=== PATIENT | male | born 1965 | race Caucasian/White ===

== ENCOUNTER 2019-10-14 15:32 | Inpatient (IN) | payer MEDICAID ==
[~2019-10-14] VITALS: Ht 180.3 cm; Wt 105.7 kg
[~2019-10-14 15:32] MED LIST: BUSP15TA PO; CITA20TA9 PO; OMEP20TA62 PO; SIMV20TA PO; TRAZ-137 PO
[2019-10-14] MEDS ORDERED: ASPIRIN 325 MG TABLET PO STA (15:44)
[2019-10-14] MEDS ORDERED: BIVALIRUDIN 250 MG ONE ×2 (15:50→16:09)
[2019-10-14] MEDS ORDERED: TICAGRELOR 90 MG TABLET ONE (15:50)
[2019-10-14] MEDS ORDERED: FENTANYL PF 100 MCG/2ML ONE ×3 (15:50→16:58)
[2019-10-14] MEDS ORDERED: VERAPAMIL 2.5 MG/ML, 2ML ONE (15:50)
[2019-10-14] MEDS ORDERED: HEPARIN 1,000 UNITS/ML, 10ML ONE (15:50)
[2019-10-14] MEDS ORDERED: MIDAZOLAM 1 MG/ML, 5ML ONE (15:50)
--- NOTE | 2019-10-14 15:50 | NUR ---
code cardiac called at 1543 called card at 1543 card called back at 1542
[2019-10-14] MEDS ORDERED: LIDOCAINE 2%, 20ML ONE (15:51)
[2019-10-14] MEDS ORDERED: MORPHINE SULFATE 4 MG/ML, 1ML ONE (15:52)
[2019-10-14 15:59] LABS: BASOPHILS # (AUTO) 0.08 x10^3/uL (0-0.1); BASOPHILS % (AUTO) 1 % (0-1); EOSINOPHILS # (AUTO) 0.14 x10^3/uL (0-0.4); EOSINOPHILS % (AUTO) 1 % (1-7); LYMPHOCYTES # (AUTO) 3.34 x10^3/uL (1-3.4); LYMPHOCYTES % (AUTO) 28 % (22-44); MD NO; MEAN CORPUSCULAR HEMOGLOBIN 31.2 pg (27.5-34.5); MEAN CORPUSCULAR HGB CONC 33.1 g/dL (33.2-36.2); MEAN CORPUSCULAR VOLUME 94.4 fL (81-97); MEAN PLATELET VOLUME 9.8 fL (7.4-10.4); MONOCYTES # (AUTO) 0.81 x10^3/uL (0.2-0.8); MONOCYTES % (AUTO) 7 % (2-9); NEUTROPHILS # (AUTO) 7.43 x10^3/uL (1.8-6.8); NEUTROPHILS % (AUTO) 63 % (42-75); PLATELET COUNT 183 x10^3/uL (130-400); RED BLOOD COUNT 4.62 x10^6/uL (4.38-5.82); RED CELL DISTRIBUTION WIDTH 13.7 % (9.4-14.8)
[2019-10-14] MEDS ORDERED: PLEASE ENTER HEIGHT AND WEIGHT MC SCH (16:00)
[2019-10-14 16:09] LABS: INTERNATIONAL NORMALIZED RATIO 0.95 (0.93-1.1)
[2019-10-14 16:12] LABS: TROPONIN I < 0.015 ng/mL (0.000-0.045)
--- NOTE | 2019-10-14 16:13 | NUR ---
Pt here for substernal chest pain radiaitng to left chest. Pt had st eval on monitor, pt had ekg completed. [facility] cardiac called. ekg verified by md russell. Dr. Dinh to bedside and requesting pt go up immediately for intervention no need for creatine to come back. CCU sup at bedside aware of this and cath okayed for pt to go up.
--- NOTE | 2019-10-14 16:16 | NUR ---
Pt taked to research laboratory technician without complications.
--- NOTE | 2019-10-14 16:17 | NUR ---
Report to tim medical lab scientist rn.
[2019-10-14] MEDS ORDERED: NITROGLYCERIN 0.4 MG/SPRAY SL PRN (16:30)
[2019-10-14] MEDS ORDERED: morphine SULFATE 10 MG/ML, 1ML IVPush ONE (16:30)
[2019-10-14] MEDS ORDERED: ASPIRIN 325 MG TABLET PO ONE (16:30)
[2019-10-14] MEDS ORDERED: NITROGLYCERIN 0.4 MG BOTTLE (25 TABS) SL PRN (16:30)
[2019-10-14] MEDS ORDERED: ACETAMINOPHEN 325 MG TABLET PO PRN (16:30)
[2019-10-14] MEDS ORDERED: ADENOSINE 6 MG/2 ML ONE (16:38)
[2019-10-14 17:29] VITALS: BP 126/74
[2019-10-14] MEDS ORDERED: ICN morphine 0.25 MG/ML IV IV PRN (17:30)
[2019-10-14] MEDS: METOPROLOL TARTRATE 25 MG TABLET PO SCH (17:56)
[2019-10-14] MEDS: SODIUM CHLORIDE 0.9% 1,000 ML IV SCH (17:57)
[2019-10-14 18:50] LABS: CHOL/HDL RATIO 7.5; LDL/HDL RATIO 5.1 (0.5-3.0)
[2019-10-14] MEDS: MORPHINE SULFATE 4 MG/ML, 1ML IV PRN ×2 (19:28→23:21)
[2019-10-14] MEDS: TICAGRELOR 90 MG TABLET PO SCH (21:36)
[2019-10-14] MEDS: BUSPIRONE 5 MG TABLET PO SCH (21:36)
[2019-10-14] MEDS: ATORVASTATIN 80 MG TABLET PO SCH (21:36)
[2019-10-14] MEDS: TRAZODONE 50MG TABLET PO SCH (21:36)
[2019-10-15] MEDS: SODIUM CHLORIDE 0.9% 1,000 ML IV SCH (02:00)
[2019-10-15] MEDS: MORPHINE SULFATE 4 MG/ML, 1ML IV PRN (04:42)
[2019-10-15 04:47] LABS: BASOPHILS # (AUTO) 0.01 x10^3/uL (0-0.1); BASOPHILS % (AUTO) 0 % (0-1); EOSINOPHILS # (AUTO) 0.11 x10^3/uL (0-0.4); EOSINOPHILS % (AUTO) 1 % (1-7); LYMPHOCYTES # (AUTO) 1.78 x10^3/uL (1-3.4); LYMPHOCYTES % (AUTO) 16 % (22-44); MD NO; MEAN CORPUSCULAR HEMOGLOBIN 31.2 pg (27.5-34.5); MEAN CORPUSCULAR HGB CONC 33.4 g/dL (33.2-36.2); MEAN CORPUSCULAR VOLUME 93.3 fL (81-97); MEAN PLATELET VOLUME 10.2 fL (7.4-10.4); MONOCYTES # (AUTO) 0.76 x10^3/uL (0.2-0.8); MONOCYTES % (AUTO) 7 % (2-9); NEUTROPHILS # (AUTO) 8.57 x10^3/uL (1.8-6.8); NEUTROPHILS % (AUTO) 76 % (42-75); PLATELET COUNT 139 x10^3/uL (130-400); RED BLOOD COUNT 4.35 x10^6/uL (4.38-5.82); RED CELL DISTRIBUTION WIDTH 13.4 % (9.4-14.8)
[2019-10-15 04:55] LABS: ALANINE AMINOTRANSFERASE 20 U/L (12-78); ALBUMIN 2.9 g/dL (3.4-5.0); ANION GAP 7 mmol/L (5-15); CALCIUM 7.7 mg/dL (8.5-10.1); CHLORIDE 112 mmol/L (98-107); CREATININE 0.77 mg/dL (0.7-1.3)
[2019-10-15 04:59] LABS: ALKALINE PHOSPHATASE 53 U/L (45-117); BILIRUBIN,TOTAL 0.7 mg/dL (0.2-1.0); TOTAL PROTEIN 6.2 g/dL (6.4-8.2)
[2019-10-15] MEDS: METOPROLOL TARTRATE 25 MG TABLET PO SCH ×2 (06:03→16:41)
[2019-10-15] MEDS: TICAGRELOR 90 MG TABLET PO SCH ×2 (08:23→20:20)
[2019-10-15] MEDS: SERTRALINE 50MG TABLET PO SCH (08:23)
[2019-10-15] MEDS: ASPIRIN 81 MG TABLET EC PO SCH (08:23)
[2019-10-15] MEDS: BUSPIRONE 5 MG TABLET PO SCH ×3 (08:23→20:20)
[2019-10-15] MEDS ORDERED: ASPIRIN 325 MG TABLET EC PO SCH (09:00)
[2019-10-15] MEDS: OXYcodone IR 5MG TABLET PO PRN ×3 (09:52→17:52)
[2019-10-15] MEDS: LISINOPRIL 5 MG TABLET PO SCH (09:53)
[2019-10-15 20:17] VITALS: BP 111/71
[2019-10-15] MEDS: TRAZODONE 50MG TABLET PO SCH (20:20)
[2019-10-15] MEDS: ATORVASTATIN 80 MG TABLET PO SCH (20:20)
[2019-10-16 03:12] VITALS: BP 103/70
[2019-10-16] MEDS: METOPROLOL TARTRATE 25 MG TABLET PO SCH (05:34)
[2019-10-16 05:35] VITALS: BP 106/68
[2019-10-16 07:20] VITALS: BP 111/68
[2019-10-16] MEDS ORDERED: LISI5TAB7 PO (09:35)
[2019-10-16] MEDS ORDERED: TICA90TA PO (09:35)
[2019-10-16] MEDS ORDERED: METO25TA35 PO (09:35)
[2019-10-16] MEDS ORDERED: ASPI81TA45 PO (09:35)
[2019-10-16] MEDS ORDERED: ATOR-2 PO (09:35)
[2019-10-16] MEDS: TICAGRELOR 90 MG TABLET PO SCH (09:55)
[2019-10-16] MEDS: ASPIRIN 81 MG TABLET EC PO SCH (09:55)
[2019-10-16] MEDS: SERTRALINE 50MG TABLET PO SCH (09:56)
[2019-10-16] MEDS: LISINOPRIL 5 MG TABLET PO SCH (09:56)
[2019-10-16] MEDS: BUSPIRONE 5 MG TABLET PO SCH (09:56)
== END 2019-10-16 12:30 | disposition home or self-care (01) | DRG 246 ==
LOC: ED 16:00 → EDIP 16:01 → ED 16:30 → CCU 17:21 → 5SO 10-15 19:27 → DCLOUNGE 10-16 11:59
PROVIDERS: ADMIT Internal Medicine Cardiovascular Disease; ATTEND Internal Medicine Cardiovascular Disease
PROC: 027035Z Dilation of Coronary Artery, One Artery with Two Drug-eluting Intraluminal Devices, Percutaneous Approach (ICD-10-PCS; principal; 2019-10-14)
PROC: 4A023N7 Measurement of Cardiac Sampling and Pressure, Left Heart, Percutaneous Approach (ICD-10-PCS; 2019-10-14)
PROC: B211YZZ Fluoroscopy of Multiple Coronary Arteries using Other Contrast (ICD-10-PCS; 2019-10-14)
DX: I21.19 ST elevation (STEMI) myocardial infarction involving other coronary artery of inferior wall (principal); I50.31 Acute diastolic (congestive) heart failure; E78.00 Pure hypercholesterolemia, unspecified; E78.5 Hyperlipidemia, unspecified; F17.200 Nicotine dependence, unspecified, uncomplicated; I11.0 Hypertensive heart disease with heart failure; I25.10 Atherosclerotic heart disease of native coronary artery without angina pectoris; Z88.7 Allergy status to serum and vaccine
CPT/HCPCS: 36415; 93454; 99285; J3490; 71045; 80047; 80053; 80061; 84484; 85025; 85610; 85730; 87081; 93005; 93306; 99156; 99157; C1760; C1769; C1894; G0378; J0153; J0583; J1644; J2250; J3010; C1725; C1874; C1887; J2270; J7030; Q9967

== ENCOUNTER 2019-11-12 09:19 | Inpatient (IN) | payer MEDICAID ==
[~2019-11-12] VITALS: Ht 180.3 cm; Wt 115.0 kg
[~2019-11-12 09:19] MED LIST changes: +ASPI81TA45 PO; +ATOR-2 PO; +LISI5TAB7 PO; +METO25TA35 PO; +TICA90TA PO
[2019-11-12] MEDS ORDERED: ONDANSETRON 2MG/ML, 2ML ONE (09:50)
[2019-11-12] MEDS ORDERED: MORPHINE SULFATE 4 MG/ML, 1ML ONE ×2 (09:50→11:43)
[2019-11-12] MEDS ORDERED: ASPIRIN 81 MG TABLET CHEW ONE (09:50)
[2019-11-12] MEDS ORDERED: ASPIRIN 81 MG TABLET CHEW PO ONE (10:00)
[2019-11-12] MEDS ORDERED: ONDANSETRON 2MG/ML, 2ML IVPush ONE (10:00)
[2019-11-12] MEDS ORDERED: NITROGLYCERIN SINGLE TAB 0.4 MG SL PRN (10:00)
[2019-11-12] MEDS ORDERED: NITROGLYCERIN SINGLE TAB 0.4 MG SL ONE (10:18)
[2019-11-12 10:29] LABS: BASOPHILS # (AUTO) 0.01 x10^3/uL (0-0.1); BASOPHILS % (AUTO) 0 % (0-1); EOSINOPHILS # (AUTO) 0.15 x10^3/uL (0-0.4); EOSINOPHILS % (AUTO) 2 % (1-7); LYMPHOCYTES # (AUTO) 2.96 x10^3/uL (1-3.4); LYMPHOCYTES % (AUTO) 33 % (22-44); MD NO; MEAN CORPUSCULAR HEMOGLOBIN 30.6 pg (27.5-34.5); MEAN CORPUSCULAR VOLUME 92.7 fL (81-97); MEAN PLATELET VOLUME 9.4 fL (7.4-10.4); MONOCYTES # (AUTO) 0.65 x10^3/uL (0.2-0.8); MONOCYTES % (AUTO) 7 % (2-9); NEUTROPHILS % (AUTO) 59 % (42-75); PLATELET COUNT 165 x10^3/uL (130-400); RED BLOOD COUNT 4.98 x10^6/uL (4.38-5.82); RED CELL DISTRIBUTION WIDTH 13.6 % (9.4-14.8)
--- NOTE | 2019-11-12 10:30 | NUR ---
pt presents to ED with c/o gradual onset sternal chest pain/pressure, denies radiating pain, states however that left arm and hand are numb. pt has no focal weakness, neuro intact, no drift. pt reports that he had ND with stent 09/2019 and has been compliant with aspirin and brilinta. Pt seen by JOSEFINA Peñaloza. Per MD, pt does not qualify for code neuro, symptoms are cardiac. MD notified pt has had brilinta and 81 mg asa already this am, MD instructed RN to admin aspirin 162 mg as ordered in eMAR. Pt rates CP at 8/10 prior to nitro admin, states pain has not changed after nitro admin. pt on all monitors, EKG taken in triage. pt a&o, resps even and unlabored, anxious. pt updated with POC, pt agreeable. call light in reach, pt in gown, blanket provided.
[2019-11-12] MEDS: MORPHINE SULFATE 4 MG/ML, 1ML IVPush PRN ×3 (10:34→17:33)
[2019-11-12 10:41] LABS: ALANINE AMINOTRANSFERASE 21 U/L (12-78); ALBUMIN 3.8 g/dL (3.4-5.0); ANION GAP 6 mmol/L (5-15); CALCIUM 8.7 mg/dL (8.5-10.1); CHLORIDE 109 mmol/L (98-107); CREATININE 1.12 mg/dL (0.7-1.3)
[2019-11-12 10:45] LABS: ALKALINE PHOSPHATASE 84 U/L (45-117); BILIRUBIN,TOTAL 0.4 mg/dL (0.2-1.0); TOTAL PROTEIN 7.7 g/dL (6.4-8.2); TROPONIN I < 0.015 ng/mL (0.000-0.045)
[2019-11-12] MEDS ORDERED: TRAZ50TA66 PO (10:59)
[2019-11-12] MEDS ORDERED: HYDR50TA13 PO (10:59)
[2019-11-12] MEDS ORDERED: SERT50TA PO (10:59)
[2019-11-12] MEDS ORDERED: BUSP5TAB2 PO (10:59)
--- NOTE | 2019-11-12 11:03 | NUR ---
pt notes brief improvement with chest pain after morphine admin, however notes pain level now returned to 8/10. pt educated regarding med management, repeat morphine to be held until BP improves. Pt agreeable. pt is a&o, resps even and unlabored, nsr on cardiac montior with no ectopy, rate 60's. anxiety improved. all results back, chart up for recheck, awaiting MD and dispo.
--- NOTE | 2019-11-12 11:42 | NUR ---
report given to break RN Karl, pt a&o, resps even and unlabored, reporting persistent CP level 8/10. nsr on monitoring tech with no ectopy.
--- NOTE | 2019-11-12 12:30 | NUR ---
this RN is back from break, MD Sanchez at bedside.
--- NOTE | 2019-11-12 12:43 | NUR ---
MD Sanchez and MD Peñaloza aware pt's pain level still 7/10 after morphine x 2. Per MDs, pt to be kept NPO for potential dental laboratory supervisor today.
--- NOTE | 2019-11-12 12:56 | NUR ---
pt instructed to remain NPO, last PO intake was breakfast sandwich this am at 0630.
[2019-11-12] MEDS ORDERED: POLYETHYLENE GLYCOL 17 GM PACKET PO PRN (13:00)
[2019-11-12] MEDS ORDERED: ENOXAPARIN 40 MG/0.4 ML SQ SCH (13:00)
[2019-11-12] MEDS ORDERED: NITROGLYCERIN 0.4 MG/SPRAY SL PRN (13:00)
[2019-11-12] MEDS ORDERED: TRAZODONE 50MG TABLET PO PRN (13:00)
[2019-11-12] MEDS ORDERED: PROMETHAZINE 25 MG/ML, 1ML IM PRN (13:00)
[2019-11-12] MEDS ORDERED: ACETAMINOPHEN 325 MG TABLET PO PRN (13:00)
[2019-11-12] MEDS ORDERED: LABETALOL 5MG/ML, 20ML IVPush PRN (13:00)
[2019-11-12] MEDS ORDERED: ENALAPRILAT 1.25 MG/ML, 2ML IVPush PRN (13:00)
[2019-11-12] MEDS ORDERED: DOCUSATE 100 MG CAPSULE PO PRN (13:00)
[2019-11-12] MEDS ORDERED: ONDANSETRON 2MG/ML, 2ML IVPush PRN (13:00)
[2019-11-12] MEDS ORDERED: BISACODYL 10 MG SUPP PR PRN (13:00)
[2019-11-12] MEDS ORDERED: hydrOXyzine 50MG TABLET PO PRN (13:00)
[2019-11-12] MEDS ORDERED: NITROGLYCERIN 0.4 MG BOTTLE (25 TABS) SL PRN (13:00)
[2019-11-12] MEDS ORDERED: FENTANYL PF 100 MCG/2ML ONE (13:16)
[2019-11-12] MEDS ORDERED: MIDAZOLAM 1 MG/ML, 5ML ONE (13:16)
[2019-11-12] MEDS ORDERED: BIVALIRUDIN 250 MG ONE ×2 (13:16→13:42)
[2019-11-12] MEDS ORDERED: LIDOCAINE 2%, 20ML ONE (13:17)
[2019-11-12 13:18] LABS: TROPONIN I < 0.015 ng/mL (0.000-0.045)
--- NOTE | 2019-11-12 13:21 | NUR ---
pt undressed fully, consent signed for cardiac cath. report given to RNs Georges and Armand at bedside. pt a&o, resps even and unlabored, nsr on patient access associate with no ectopy. pre-procedural paperwork completed. pt transported to solder making laborer by solder making laborer RNs. [email or web address] at transport.
[2019-11-12] MEDS ORDERED: TICAGRELOR 90 MG TABLET ONE (13:30)
[2019-11-12] MEDS ORDERED: SODIUM CHLORIDE 0.9% 1,000 ML IV SCH ×2 (13:30→14:26)
--- NOTE | 2019-11-12 14:16 | NUR ---
report given to television equipment operatorANTONI Palma who is to assume care after laborer yard.
[2019-11-12] MEDS ORDERED: BIVALIRUDIN 250 MG in SODIUM CHLORIDE 0.9% 50 ML IV SCH (14:26)
[2019-11-12 14:30] VITALS: BP 115/71
[2019-11-12] MEDS: OMEPRAZOLE 20 MG CAPSULE.DR PO SCH (15:44)
[2019-11-12] MEDS: OXYcodone IR 5MG TABLET PO PRN ×2 (15:45→20:18)
[2019-11-12] MEDS: METOPROLOL TARTRATE 25 MG TABLET PO SCH (17:32)
[2019-11-12 19:07] LABS: TROPONIN I 0.016 ng/mL (0.000-0.045)
[2019-11-12 20:13] VITALS: BP 93/54
[2019-11-12] MEDS: BUSPIRONE 5 MG TABLET PO SCH (20:18)
[2019-11-12] MEDS: TICAGRELOR 90 MG TABLET PO SCH (20:19)
[2019-11-12 20:51] LABS: TROPONIN I 0.036 ng/mL (0.000-0.045)
[2019-11-12] MEDS ORDERED: ATORVASTATIN 80 MG TABLET PO SCH (21:00)
[2019-11-12 22:00] VITALS: BP 106/68
[2019-11-13 00:44] VITALS: BP 102/67
[2019-11-13 00:57] LABS: TROPONIN I 0.131 ng/mL (0.000-0.045)
[2019-11-13] MEDS: MORPHINE SULFATE 4 MG/ML, 1ML IVPush PRN ×2 (01:06→12:12)
[2019-11-13 01:54] VITALS: BP 101/64
[2019-11-13 04:49] LABS: BASOPHILS # (AUTO) 0.02 x10^3/uL (0-0.1); BASOPHILS % (AUTO) 0 % (0-1); EOSINOPHILS % (AUTO) 2 % (1-7); LYMPHOCYTES # (AUTO) 2.07 x10^3/uL (1-3.4); LYMPHOCYTES % (AUTO) 24 % (22-44); MD NO; MEAN CORPUSCULAR HEMOGLOBIN 30.7 pg (27.5-34.5); MEAN CORPUSCULAR HGB CONC 33.1 g/dL (33.2-36.2); MEAN CORPUSCULAR VOLUME 92.6 fL (81-97); MEAN PLATELET VOLUME 9.9 fL (7.4-10.4); MONOCYTES # (AUTO) 0.55 x10^3/uL (0.2-0.8); MONOCYTES % (AUTO) 7 % (2-9); NEUTROPHILS # (AUTO) 5.63 x10^3/uL (1.8-6.8); NEUTROPHILS % (AUTO) 67 % (42-75); PLATELET COUNT 137 x10^3/uL (130-400); RED BLOOD COUNT 4.49 x10^6/uL (4.38-5.82); RED CELL DISTRIBUTION WIDTH 13.8 % (9.4-14.8)
[2019-11-13 04:54] LABS: ALANINE AMINOTRANSFERASE 18 U/L (12-78); ANION GAP 6 mmol/L (5-15); CALCIUM 8.2 mg/dL (8.5-10.1); CHLORIDE 110 mmol/L (98-107); CREATININE 0.97 mg/dL (0.7-1.3)
[2019-11-13 04:56] LABS: ALKALINE PHOSPHATASE 54 U/L (45-117); BILIRUBIN,TOTAL 0.5 mg/dL (0.2-1.0); TOTAL PROTEIN 6.2 g/dL (6.4-8.2)
[2019-11-13 05:09] VITALS: BP 107/68
[2019-11-13] MEDS: METOPROLOL TARTRATE 25 MG TABLET PO SCH (05:12)
[2019-11-13] MEDS: OMEPRAZOLE 20 MG CAPSULE.DR PO SCH ×2 (05:12→16:00)
[2019-11-13 08:10] VITALS: BP 99/60
[2019-11-13] MEDS ORDERED: LISINOPRIL 5 MG TABLET PO SCH (09:00)
[2019-11-13] MEDS ORDERED: ASPIRIN 81 MG TABLET EC PO SCH (09:00)
[2019-11-13] MEDS ORDERED: SERTRALINE 50MG TABLET PO SCH (09:00)
[2019-11-13 09:32] LABS: TROPONIN I 0.184 ng/mL (0.000-0.045)
[2019-11-13] MEDS: TICAGRELOR 90 MG TABLET PO SCH (09:43)
[2019-11-13] MEDS: BUSPIRONE 5 MG TABLET PO SCH (09:43)
[2019-11-13] MEDS: OXYcodone IR 5MG TABLET PO PRN (09:50)
[2019-11-13] MEDS ORDERED: TICA90TA PO (14:42)
[2019-11-13] MEDS ORDERED: LISI5TAB7 PO (14:42)
[2019-11-13] MEDS ORDERED: ATOR-2 PO (14:42)
[2019-11-13] MEDS ORDERED: ASPI81TA45 PO (14:42)
[2019-11-13] MEDS ORDERED: METO25TA35 PO (14:42)
[2019-11-13 14:48] VITALS: BP 111/60
== END 2019-11-13 16:54 | disposition home or self-care (01) | DRG 247 ==
LOC: ED 10:47 → EDIP 11:42 → 5SO 13:48 → DCLOUNGE 11-13 14:36
PROVIDERS: ADMIT Internal Medicine; ATTEND Hospitalist
PROC: 4A023N7 Measurement of Cardiac Sampling and Pressure, Left Heart, Percutaneous Approach (ICD-10-PCS; principal; 2019-11-12)
PROC: 027034Z Dilation of Coronary Artery, One Artery with Drug-eluting Intraluminal Device, Percutaneous Approach (ICD-10-PCS; 2019-11-12)
PROC: 02703ZZ Dilation of Coronary Artery, One Artery, Percutaneous Approach (ICD-10-PCS; 2019-11-12)
PROC: B211YZZ Fluoroscopy of Multiple Coronary Arteries using Other Contrast (ICD-10-PCS; 2019-11-12)
DX: I25.110 Atherosclerotic heart disease of native coronary artery with unstable angina pectoris (principal); I50.32 Chronic diastolic (congestive) heart failure; F17.210 Nicotine dependence, cigarettes, uncomplicated; E78.5 Hyperlipidemia, unspecified; F32.9 Major depressive disorder, single episode, unspecified; I11.0 Hypertensive heart disease with heart failure; R00.1 Bradycardia, unspecified; I34.0 Nonrheumatic mitral (valve) insufficiency; I25.2 Old myocardial infarction; Z80.1 Family history of malignant neoplasm of trachea, bronchus and lung; Z82.0 Family history of epilepsy and other diseases of the nervous system; Z82.5 Family history of asthma and other chronic lower respiratory diseases
CPT/HCPCS: 36415; 92920; 93458; 96374; 99285; C9600; J3490; 71045; 80053; 83690; 84484; 85025; 93005; 93306; 93356; 99156; 99157; C1760; C1769; C1894; G0378; J0583; J2250; J2405; J3010; C1725; C1874; C1887; J2270; Q9967

== ENCOUNTER 2020-01-23 21:50 | Inpatient (IN) | payer MEDICAID ==
[~2020-01-23] VITALS: Ht 182.9 cm; Wt 120.6 kg
[~2020-01-23 21:50] MED LIST changes: +BUSP5TAB2 PO; +HYDR50TA99 PO; +SERT50TA PO; -TRAZ-137 PO; +TRAZ-175 PO; +TRAZ50TA66 PO
--- NOTE | 2020-01-23 21:53 | NUR ---
Patient BIB [facility] c/o CP x35 minutes. Patient has a cardiac hx including a recent MS. Patient describes the pain as someone trying to push a fist out of his chest. Pain does not radiate but his left arm/shoulder is numb. Patient denies nausea. Patient is in obvious discomfort. Respirations even and unlabored.
[2020-01-23] MEDS ORDERED: ONDANSETRON 2MG/ML, 2ML IVPush ONE (22:00)
[2020-01-23] MEDS ORDERED: SODIUM CHLORIDE FLUSH 10ML SYR IVF ONE (22:00)
[2020-01-23 22:16] LABS: BASOPHILS # (AUTO) 0.04 x10^3/uL (0-0.1); BASOPHILS % (AUTO) 0 % (0-1); EOSINOPHILS % (AUTO) 2 % (1-7); LYMPHOCYTES # (AUTO) 3.33 x10^3/uL (1-3.4); LYMPHOCYTES % (AUTO) 36 % (22-44); MD NO; MEAN CORPUSCULAR HEMOGLOBIN 29.6 pg (27.5-34.5); MEAN CORPUSCULAR HGB CONC 33.2 g/dL (33.2-36.2); MEAN CORPUSCULAR VOLUME 89.1 fL (81-97); MEAN PLATELET VOLUME 9.6 fL (7.4-10.4); MONOCYTES # (AUTO) 0.58 x10^3/uL (0.2-0.8); MONOCYTES % (AUTO) 6 % (2-9); NEUTROPHILS # (AUTO) 5.09 x10^3/uL (1.8-6.8); NEUTROPHILS % (AUTO) 55 % (42-75); PLATELET COUNT 162 x10^3/uL (130-400); RED BLOOD COUNT 4.83 x10^6/uL (4.38-5.82); RED CELL DISTRIBUTION WIDTH 14.1 % (9.4-14.8)
[2020-01-23 22:26] LABS: ALBUMIN 3.5 g/dL (3.4-5.0); ANION GAP 9 mmol/L (5-15); CALCIUM 8.4 mg/dL (8.5-10.1); CHLORIDE 109 mmol/L (98-107)
[2020-01-23] MEDS ORDERED: ONDANSETRON 2MG/ML, 2ML ONE (22:27)
[2020-01-23] MEDS ORDERED: MORPHINE SULFATE 4 MG/ML, 1ML ONE ×2 (22:27→23:14)
[2020-01-23] MEDS: MORPHINE SULFATE 4 MG/ML, 1ML IVPush PRN ×2 (22:29→23:17)
[2020-01-23 22:32] LABS: ALANINE AMINOTRANSFERASE 26 U/L (12-78); ALKALINE PHOSPHATASE 70 U/L (45-117); BILIRUBIN,TOTAL 0.3 mg/dL (0.2-1.0); CREATININE 1.02 mg/dL (0.7-1.3); TROPONIN I < 0.015 ng/mL (0.000-0.045)
[2020-01-23] MEDS ORDERED: hydrOXyzine 50MG TABLET PO PRN (23:30)
[2020-01-23] MEDS ORDERED: ACETAMINOPHEN 325 MG TABLET PO PRN (23:30)
[2020-01-23] MEDS ORDERED: NITROGLYCERIN 0.4 MG/SPRAY SL PRN (23:30)
[2020-01-23] MEDS ORDERED: ONDANSETRON 2MG/ML, 2ML IVPush PRN (23:30)
[2020-01-23] MEDS ORDERED: NITROGLYCERIN 0.4 MG BOTTLE (25 TABS) SL PRN (23:30)
[2020-01-23] MEDS ORDERED: ONDANSETRON ODT 4 MG PO PRN (23:30)
[2020-01-24] VITALS (10 sets, daily range): BP systolic 98–117; BP diastolic 57–77
--- NOTE | 2020-01-24 | NUR ---
Report given to ANTONI Murphy. Patient to be transferred to room 512.
[2020-01-24] MEDS: ATORVASTATIN 80 MG TABLET PO SCH ×2 (00:39→20:21)
[2020-01-24] MEDS: HEPARIN 5,000 UNITS/ML, 1ML SQ SCH ×3 (00:39→17:16)
[2020-01-24] MEDS: morphine SULFATE 10 MG/ML, 1ML IVPush PRN ×7 (01:26→23:50)
[2020-01-24] MEDS ORDERED: NITROGLYCERIN OINT 2%, 1GM TP ONE (02:30)
[2020-01-24 05:09] LABS: BASOPHILS # (AUTO) 0.02 x10^3/uL (0-0.1); BASOPHILS % (AUTO) 0 % (0-1); EOSINOPHILS # (AUTO) 0.13 x10^3/uL (0-0.4); EOSINOPHILS % (AUTO) 1 % (1-7); LYMPHOCYTES # (AUTO) 2.87 x10^3/uL (1-3.4); LYMPHOCYTES % (AUTO) 30 % (22-44); MD NO; MEAN CORPUSCULAR HEMOGLOBIN 29.5 pg (27.5-34.5); MEAN CORPUSCULAR HGB CONC 32.9 g/dL (33.2-36.2); MEAN CORPUSCULAR VOLUME 89.7 fL (81-97); MEAN PLATELET VOLUME 10.3 fL (7.4-10.4); MONOCYTES # (AUTO) 0.58 x10^3/uL (0.2-0.8); MONOCYTES % (AUTO) 6 % (2-9); NEUTROPHILS % (AUTO) 63 % (42-75); PLATELET COUNT 143 x10^3/uL (130-400); RED BLOOD COUNT 4.72 x10^6/uL (4.38-5.82); RED CELL DISTRIBUTION WIDTH 14.1 % (9.4-14.8)
[2020-01-24 05:17] LABS: ALANINE AMINOTRANSFERASE 27 U/L (12-78); ALBUMIN 3.3 g/dL (3.4-5.0); ANION GAP 8 mmol/L (5-15); CALCIUM 8.2 mg/dL (8.5-10.1); CHLORIDE 110 mmol/L (98-107); CREATININE 0.97 mg/dL (0.7-1.3)
[2020-01-24 05:22] LABS: ALKALINE PHOSPHATASE 51 U/L (45-117); BILIRUBIN,TOTAL 0.5 mg/dL (0.2-1.0); TOTAL PROTEIN 6.7 g/dL (6.4-8.2); TROPONIN I < 0.015 ng/mL (0.000-0.045)
[2020-01-24] MEDS: METOPROLOL TARTRATE 25 MG TAB PO SCH ×2 (06:15→18:12)
[2020-01-24] MEDS ORDERED: METO25TA91 PO (08:49)
[2020-01-24] MEDS ORDERED: EZET10TA70 PO (08:49)
[2020-01-24] MEDS ORDERED: NICO-486 TD (08:49)
[2020-01-24] MEDS ORDERED: NITR0.4T28 SL (08:49)
[2020-01-24] MEDS ORDERED: ACET325T26 PO (08:49)
[2020-01-24] MEDS: OMEPRAZOLE 20 MG CAPSULE.DR PO SCH (09:23)
[2020-01-24] MEDS: SERTRALINE 50MG TABLET PO SCH (09:23)
[2020-01-24] MEDS: LISINOPRIL 5 MG TABLET PO SCH (09:23)
[2020-01-24] MEDS: ASPIRIN 81 MG TABLET EC PO SCH (09:23)
[2020-01-24] MEDS: BUSPIRONE 5 MG TABLET PO SCH ×2 (09:24→20:21)
[2020-01-24] MEDS: TICAGRELOR 90 MG TABLET PO SCH ×2 (09:24→20:21)
[2020-01-24 10:57] LABS: TROPONIN I < 0.015 ng/mL (0.000-0.045)
[2020-01-24] MEDS ORDERED: LIDODERM 5% PATCH TD PRN (14:00)
[2020-01-24] MEDS: TRAZODONE 100MG TABLET PO SCH (20:21)
[2020-01-25] MEDS: HEPARIN 5,000 UNITS/ML, 1ML SQ SCH ×3 (00:37→17:26)
[2020-01-25 01:17] VITALS: BP 99/59
[2020-01-25] MEDS: morphine SULFATE 10 MG/ML, 1ML IVPush PRN ×5 (03:25→21:19)
[2020-01-25 04:59] LABS: BASOPHILS # (AUTO) 0.03 x10^3/uL (0-0.1); BASOPHILS % (AUTO) 0 % (0-1); EOSINOPHILS # (AUTO) 0.19 x10^3/uL (0-0.4); EOSINOPHILS % (AUTO) 2 % (1-7); LYMPHOCYTES # (AUTO) 3.12 x10^3/uL (1-3.4); LYMPHOCYTES % (AUTO) 35 % (22-44); MD NO; MEAN CORPUSCULAR HEMOGLOBIN 29.5 pg (27.5-34.5); MEAN CORPUSCULAR VOLUME 89.5 fL (81-97); MEAN PLATELET VOLUME 10.2 fL (7.4-10.4); MONOCYTES # (AUTO) 0.55 x10^3/uL (0.2-0.8); MONOCYTES % (AUTO) 6 % (2-9); NEUTROPHILS # (AUTO) 5.15 x10^3/uL (1.8-6.8); NEUTROPHILS % (AUTO) 57 % (42-75); PLATELET COUNT 132 x10^3/uL (130-400); RED BLOOD COUNT 4.58 x10^6/uL (4.38-5.82); RED CELL DISTRIBUTION WIDTH 14.1 % (9.4-14.8)
[2020-01-25 04:59] LABS: ANION GAP 7 mmol/L (5-15); CALCIUM 8.3 mg/dL (8.5-10.1); CHLORIDE 108 mmol/L (98-107)
[2020-01-25 05:00] LABS: CREATININE 1.03 mg/dL (0.7-1.3)
[2020-01-25 06:26] VITALS: BP 101/67
[2020-01-25] MEDS: METOPROLOL TARTRATE 25 MG TAB PO SCH ×2 (06:27→17:26)
[2020-01-25 07:12] VITALS: BP 106/68
[2020-01-25] MEDS: TICAGRELOR 90 MG TABLET PO SCH ×2 (08:45→21:08)
[2020-01-25] MEDS: LISINOPRIL 5 MG TABLET PO SCH (08:46)
[2020-01-25] MEDS: BUSPIRONE 5 MG TABLET PO SCH ×2 (08:46→21:09)
[2020-01-25] MEDS: ASPIRIN 81 MG TABLET EC PO SCH (08:46)
[2020-01-25] MEDS: SERTRALINE 50MG TABLET PO SCH (08:46)
[2020-01-25] MEDS: OMEPRAZOLE 20 MG CAPSULE.DR PO SCH (08:46)
[2020-01-25] MEDS ORDERED: REGADENOSON 0.4 MG/5 ML SYRINGE ONE (09:04)
[2020-01-25 14:05] VITALS: BP 100/63
[2020-01-25 21:01] VITALS: BP 99/63
[2020-01-25] MEDS: ATORVASTATIN 80 MG TABLET PO SCH (21:08)
[2020-01-25] MEDS: TRAZODONE 100MG TABLET PO SCH (21:08)
[2020-01-26] MEDS: HEPARIN 5,000 UNITS/ML, 1ML SQ SCH ×3 (00:36→17:39)
[2020-01-26] MEDS: morphine SULFATE 10 MG/ML, 1ML IVPush PRN ×4 (00:37→21:46)
[2020-01-26 03:00] VITALS: BP 106/67
[2020-01-26 04:50] LABS: ANION GAP 9 mmol/L (5-15); CALCIUM 8.4 mg/dL (8.5-10.1); CHLORIDE 110 mmol/L (98-107); CREATININE 0.97 mg/dL (0.7-1.3)
[2020-01-26 04:52] LABS: BASOPHILS # (AUTO) 0.02 x10^3/uL (0-0.1); BASOPHILS % (AUTO) 0 % (0-1); EOSINOPHILS # (AUTO) 0.24 x10^3/uL (0-0.4); EOSINOPHILS % (AUTO) 3 % (1-7); LYMPHOCYTES # (AUTO) 2.81 x10^3/uL (1-3.4); LYMPHOCYTES % (AUTO) 33 % (22-44); MD NO; MEAN CORPUSCULAR HEMOGLOBIN 29.7 pg (27.5-34.5); MEAN CORPUSCULAR HGB CONC 33.2 g/dL (33.2-36.2); MEAN CORPUSCULAR VOLUME 89.3 fL (81-97); MEAN PLATELET VOLUME 10.4 fL (7.4-10.4); MONOCYTES # (AUTO) 0.56 x10^3/uL (0.2-0.8); MONOCYTES % (AUTO) 7 % (2-9); NEUTROPHILS # (AUTO) 4.92 x10^3/uL (1.8-6.8); NEUTROPHILS % (AUTO) 58 % (42-75); PLATELET COUNT 139 x10^3/uL (130-400); RED BLOOD COUNT 4.73 x10^6/uL (4.38-5.82); RED CELL DISTRIBUTION WIDTH 13.9 % (9.4-14.8)
[2020-01-26 06:03] VITALS: BP 102/66
[2020-01-26] MEDS: METOPROLOL TARTRATE 25 MG TAB PO SCH ×2 (06:06→17:40)
[2020-01-26 06:50] VITALS: BP 105/69
[2020-01-26] MEDS: ASPIRIN 81 MG TABLET EC PO SCH (08:42)
[2020-01-26] MEDS: TICAGRELOR 90 MG TABLET PO SCH ×2 (08:42→21:44)
[2020-01-26] MEDS: SERTRALINE 50MG TABLET PO SCH (08:42)
[2020-01-26] MEDS: BUSPIRONE 5 MG TABLET PO SCH ×2 (08:42→21:44)
[2020-01-26] MEDS: LISINOPRIL 5 MG TABLET PO SCH (08:43)
[2020-01-26] MEDS: OMEPRAZOLE 20 MG CAPSULE.DR PO SCH (08:43)
[2020-01-26] MEDS: ISOSORBIDE MONONITRATE ER 30 MG TABLET PO SCH (09:40)
[2020-01-26 12:42] VITALS: BP 109/67
[2020-01-26] MEDS: TRAZODONE 100MG TABLET PO SCH (21:45)
[2020-01-26] MEDS: ATORVASTATIN 80 MG TABLET PO SCH (21:45)
[2020-01-26 21:46] VITALS: BP 108/66
[2020-01-27 00:58] VITALS: BP 92/57
[2020-01-27] MEDS: HEPARIN 5,000 UNITS/ML, 1ML SQ SCH ×3 (01:02→16:30)
[2020-01-27 04:36] LABS: BASOPHILS # (AUTO) 0.02 x10^3/uL (0-0.1); BASOPHILS % (AUTO) 0 % (0-1); EOSINOPHILS # (AUTO) 0.25 x10^3/uL (0-0.4); EOSINOPHILS % (AUTO) 3 % (1-7); LYMPHOCYTES # (AUTO) 2.59 x10^3/uL (1-3.4); LYMPHOCYTES % (AUTO) 28 % (22-44); MD NO; MEAN CORPUSCULAR HEMOGLOBIN 29.6 pg (27.5-34.5); MEAN CORPUSCULAR HGB CONC 33.1 g/dL (33.2-36.2); MEAN CORPUSCULAR VOLUME 89.4 fL (81-97); MONOCYTES # (AUTO) 0.61 x10^3/uL (0.2-0.8); MONOCYTES % (AUTO) 7 % (2-9); NEUTROPHILS # (AUTO) 5.75 x10^3/uL (1.8-6.8); NEUTROPHILS % (AUTO) 62 % (42-75); PLATELET COUNT 137 x10^3/uL (130-400); RED BLOOD COUNT 4.68 x10^6/uL (4.38-5.82); RED CELL DISTRIBUTION WIDTH 14.1 % (9.4-14.8)
[2020-01-27 04:47] LABS: ANION GAP 6 mmol/L (5-15); CALCIUM 8.6 mg/dL (8.5-10.1); CHLORIDE 111 mmol/L (98-107); CREATININE 0.95 mg/dL (0.7-1.3)
[2020-01-27] MEDS: METOPROLOL TARTRATE 25 MG TAB PO SCH (05:30)
[2020-01-27 07:20] VITALS: BP 116/72
[2020-01-27] MEDS: morphine SULFATE 10 MG/ML, 1ML IVPush PRN ×2 (08:08→12:36)
[2020-01-27] MEDS: ASPIRIN 81 MG TABLET EC PO SCH (08:36)
[2020-01-27] MEDS: TICAGRELOR 90 MG TABLET PO SCH (08:36)
[2020-01-27] MEDS: ISOSORBIDE MONONITRATE ER 30 MG TABLET PO SCH (08:36)
[2020-01-27] MEDS: OMEPRAZOLE 20 MG CAPSULE.DR PO SCH (08:37)
[2020-01-27] MEDS: SERTRALINE 50MG TABLET PO SCH (08:37)
[2020-01-27] MEDS: LISINOPRIL 5 MG TABLET PO SCH (08:38)
[2020-01-27] MEDS: BUSPIRONE 5 MG TABLET PO SCH (08:39)
[2020-01-27 12:45] VITALS: BP 117/71
[2020-01-27] MEDS ORDERED: MIDAZOLAM 1 MG/ML, 5ML ONE (13:20)
[2020-01-27] MEDS ORDERED: LIDOCAINE-MPF 1%, 5ML ONE (13:20)
[2020-01-27] MEDS ORDERED: TICAGRELOR 90 MG TABLET ONE (13:20)
[2020-01-27] MEDS ORDERED: VERAPAMIL 2.5 MG/ML, 2ML ONE (13:20)
[2020-01-27] MEDS ORDERED: HEPARIN 1,000 UNITS/ML, 10ML ONE (13:20)
[2020-01-27] MEDS ORDERED: BIVALIRUDIN 250 MG ONE (13:20)
[2020-01-27] MEDS ORDERED: FENTANYL PF 100 MCG/2ML ONE (13:20)
[2020-01-27] MEDS ORDERED: ISOS30TA8 PO (16:13)
[2020-01-27] MEDS ORDERED: LIDO700A20 TD (16:13)
== END 2020-01-27 17:40 | disposition home or self-care (01) | DRG 287 ==
LOC: ED 22:17 → EDIP 23:06 → 5SO 23:06 → UNDOADMIN 23:06 → 5SO 01-24 00:15 → EDIP 01-24 00:15
PROVIDERS: ADMIT Internal Medicine; ATTEND Hospitalist
PROC: 4A023N7 Measurement of Cardiac Sampling and Pressure, Left Heart, Percutaneous Approach (ICD-10-PCS; principal; 2020-01-27)
PROC: B2111ZZ Fluoroscopy of Multiple Coronary Arteries using Low Osmolar Contrast (ICD-10-PCS; 2020-01-27)
PROC: B2151ZZ Fluoroscopy of Left Heart using Low Osmolar Contrast (ICD-10-PCS; 2020-01-27)
DX: R07.89 Other chest pain (principal); I50.32 Chronic diastolic (congestive) heart failure; I11.0 Hypertensive heart disease with heart failure; E78.5 Hyperlipidemia, unspecified; F41.9 Anxiety disorder, unspecified; I25.10 Atherosclerotic heart disease of native coronary artery without angina pectoris; F32.9 Major depressive disorder, single episode, unspecified; K21.9 Gastro-esophageal reflux disease without esophagitis; Z88.7 Allergy status to serum and vaccine; Z72.0 Tobacco use; I25.2 Old myocardial infarction
CPT/HCPCS: 36415; 71045; 71046; 78452; 80048; 80053; 83735; 83880; 84443; 84484; 85025; 93005; 93017; 93458; 96374; 96375; 99156; 99285; C1769; C1894; G0378; J0583; J1644; J2250; J2405; J2785; J3010; A9502; C9898; J2270; Q9967

== ENCOUNTER 2020-12-29 15:42 | Observation (INO) | payer MEDICAID ==
[~2020-12-29] VITALS: Ht 182.9 cm; Wt 126.3 kg
[~2020-12-29 15:42] MED LIST changes: +ACET325T26 PO; +EZET10TA70 PO; +ISOS30TA8 PO; +LIDO700A20 TD; +METF500T PO; +METO25TA91 PO; +NICO-486 TD; +NITR0.4T28 SL; +SUCR1ORA5 PO
--- NOTE | 2020-12-29 15:56 | NUR ---
[place] [facility] [place] States he went for a walk then was on an elevator when he had sudden severe onset of chest pain at about 1500. Rated pain 10/10 and stated it radiates to left arm. Hx 3 MA's, 3 stents, balloon, diabetes, HTN. 0.4 nitro, 324 aspirin, 5mg morphine given MECHANICAL MANAGER. IV in place, hooked up to monitor, EKG done, provider at bedside. Pt still rating pain 9/10, flushed, reports he is nervous.
[2020-12-29] MEDS ORDERED: KETOROLAC 30 MG/1 ML IVPush ONE (16:00)
[2020-12-29] MEDS ORDERED: NITROGLYCERIN SINGLE TAB 0.4 MG SL PRN (16:00)
[2020-12-29] MEDS ORDERED: MORPHINE SULFATE 4 MG/ML, 1ML IVPush PRN (16:00)
[2020-12-29] MEDS ORDERED: SODIUM CHLORIDE FLUSH 10ML SYR IVF ONE (16:00)
[2020-12-29] MEDS ORDERED: NITROGLYCERIN SINGLE TAB 0.4 MG SL ONE (16:01)
[2020-12-29] MEDS ORDERED: MORPHINE SULFATE 4 MG/ML, 1ML ONE (16:02)
[2020-12-29] MEDS ORDERED: KETOROLAC 30 MG/1 ML ONE (16:04)
--- NOTE | 2020-12-29 16:07 | NUR ---
Lab at bedside, XR at bedside.
--- NOTE | 2020-12-29 16:12 | NUR ---
Medicated per eMAR.
[2020-12-29 16:30] LABS: ALANINE AMINOTRANSFERASE 27 U/L (12-78); ALBUMIN 3.7 g/dL (3.4-5.0); ANION GAP 11 mmol/L (5-15); CALCIUM 8.1 mg/dL (8.5-10.1); CHLORIDE 113 mmol/L (98-107); CREATININE 0.92 mg/dL (0.7-1.3)
[2020-12-29 16:35] LABS: ALKALINE PHOSPHATASE 64 U/L (45-117); BILIRUBIN,TOTAL 0.4 mg/dL (0.2-1.0); TOTAL PROTEIN 7.4 g/dL (6.4-8.2); TROPONIN I < 0.015 ng/mL (0.000-0.045)
[2020-12-29 16:36] LABS: BASOPHILS % (AUTO) 0 % (0-1); EOSINOPHILS % (AUTO) 0 % (1-7); LYMPHOCYTES % (AUTO) 27 % (22-44); MEAN CORPUSCULAR HGB CONC 34.1 g/dL (33.2-36.2); MEAN PLATELET VOLUME 9.9 fL (7.4-10.4); MONOCYTES % (AUTO) 5 % (2-9); NEUTROPHILS % (AUTO) 67 % (42-75); PLATELET COUNT 173 x10^3/uL (130-400); RED BLOOD COUNT 4.86 x10^6/uL (4.38-5.82)
[2020-12-29 16:40] LABS: MD NO
--- NOTE | 2020-12-29 16:58 | NUR ---
Pt reports pain is now 04/24.
--- NOTE | 2020-12-29 17:45 | NUR ---
Report called to ANTONI Astudillo.
--- NOTE | 2020-12-29 17:59 | NUR ---
Pt transported to room 503
[2020-12-29] MEDS ORDERED: NITROGLYCERIN 0.4 MG/SPRAY SL PRN (18:00)
[2020-12-29] MEDS ORDERED: ENOXAPARIN 40 MG/0.4 ML SQ SCH (18:00)
[2020-12-29] MEDS ORDERED: BISACODYL 5 MG EC TABLET PO PRN (18:00)
[2020-12-29] MEDS ORDERED: TRAZODONE 50MG TABLET PO PRN (18:00)
[2020-12-29] MEDS ORDERED: ONDANSETRON 2MG/ML, 2ML IV PRN (18:00)
[2020-12-29] MEDS ORDERED: ACETAMINOPHEN 325 MG TABLET PO PRN (18:00)
[2020-12-29] MEDS ORDERED: GUAIFENESIN/DM 200-20MG, 10ML UDC PO PRN (18:00)
[2020-12-29] MEDS ORDERED: BISACODYL 10 MG SUPP PR PRN (18:00)
[2020-12-29] MEDS ORDERED: HYDROcodone/APAP 5/325 TABLET PO PRN (18:00)
[2020-12-29 18:38] VITALS: BP 123/81
[2020-12-29 18:52] LABS: CHOLESTEROL, TOTAL 156 mg/dL (140-239)
[2020-12-29 18:57] LABS: CHOL/HDL RATIO 3.7; HDL CHOL % 27 % (26-37); HDL CHOLESTEROL (DIRECT) 42 mg/dL (40-60); LDL CHOLESTEROL,CALCULATED 86 mg/dL (54-169); TRIGLYCERIDES 140 mg/dL (50-200); TROPONIN I < 0.015 ng/mL (0.000-0.045); VLDL CHOLESTEROL 28 mg/dL (0-25)
[2020-12-29] MEDS: morphine SULFATE 10 MG/ML, 1ML IV PRN (20:23)
[2020-12-29] MEDS: BUSPIRONE 5 MG TABLET PO SCH (20:24)
[2020-12-29] MEDS: METOPROLOL TARTRATE 25 MG TAB PO SCH (20:24)
[2020-12-29] MEDS: SODIUM CHLORIDE FLUSH 10ML SYR IVF SCH (20:25)
[2020-12-29] MEDS: INSULIN LISPRO 100 UNITS/ML, PEN SQ-INSULIN SCH (21:00)
[2020-12-29] MEDS ORDERED: ATORVASTATIN 80 MG TABLET PO SCH (21:00)
[2020-12-29 21:05] LABS: TROPONIN I < 0.015 ng/mL (0.000-0.045)
[2020-12-29] MEDS ORDERED: CLOP75TA PO (21:54)
[2020-12-29] MEDS ORDERED: KETOROLAC 30 MG/1 ML IM PRN (22:00)
[2020-12-29] MEDS ORDERED: CLOPIDOGREL 75 MG TABLET PO SCH (22:00)
[2020-12-29] MEDS: KETOROLAC 30 MG/1 ML IVPush PRN (22:13)
[2020-12-29 23:40] VITALS: BP 113/68
[2020-12-29 23:55] LABS: TROPONIN I < 0.015 ng/mL (0.000-0.045)
[2020-12-30 01:39] VITALS: BP 117/69
[2020-12-30] MEDS: morphine SULFATE 10 MG/ML, 1ML IV PRN ×2 (01:40→11:15)
[2020-12-30 05:23] LABS: CHLORIDE 109 mmol/L (98-107)
[2020-12-30] MEDS: KETOROLAC 30 MG/1 ML IVPush PRN (05:32)
[2020-12-30 05:39] LABS: ANION GAP 10 mmol/L (5-15); CREATININE 0.87 mg/dL (0.7-1.3); TROPONIN I < 0.015 ng/mL (0.000-0.045)
[2020-12-30] MEDS ORDERED: ASPIRIN 325 MG TABLET EC PO SCH (06:00)
[2020-12-30] MEDS: INSULIN LISPRO 100 UNITS/ML, PEN SQ-INSULIN SCH ×3 (07:00→16:00)
[2020-12-30 07:05] VITALS: BP 129/69
[2020-12-30] MEDS: SODIUM CHLORIDE FLUSH 10ML SYR IVF SCH (09:00)
[2020-12-30] MEDS ORDERED: LISINOPRIL 5 MG TABLET PO SCH (09:00)
[2020-12-30] MEDS ORDERED: ASPIRIN 81 MG TABLET EC PO SCH (09:00)
[2020-12-30] MEDS ORDERED: EZETIMIBE 10 MG TABLET PO SCH (09:00)
[2020-12-30] MEDS: METOPROLOL TARTRATE 25 MG TAB PO SCH (09:02)
[2020-12-30] MEDS: BUSPIRONE 5 MG TABLET PO SCH (09:02)
[2020-12-30 09:05] VITALS: BP 131/71
[2020-12-30 11:23] VITALS: BP 119/70
[2020-12-30] MEDS ORDERED: DILTIAZEM 60 MG TABLET PO ONE (11:30)
[2020-12-30 12:30] LABS: TROPONIN I < 0.015 ng/mL (0.000-0.045)
[2020-12-30 12:35] VITALS: BP 114/78
[2020-12-30] MEDS ORDERED: LORazepam 2 MG/ML, 1ML ONE (13:06)
[2020-12-30] MEDS ORDERED: LORazepam 2 MG/ML, 1ML IVPush ONE (13:30)
[2020-12-30] MEDS ORDERED: OMEP20TA62 PO (14:00)
[2020-12-30] MEDS ORDERED: CLON0.5T PO ×2 (16:35→16:36)
== END 2020-12-30 17:09 | disposition home or self-care (01) ==
LOC: SUATTDRO 17:16 → ED 17:19 → EDIP 17:35 → INTOOBSV 17:35 → 5SO 17:56
PROVIDERS: ADMIT Internal Medicine; ATTEND Hospitalist
DX: R07.89 Other chest pain (principal); I25.10 Atherosclerotic heart disease of native coronary artery without angina pectoris; J96.01 Acute respiratory failure with hypoxia; E11.9 Type 2 diabetes mellitus without complications; I10 Essential (primary) hypertension; E78.5 Hyperlipidemia, unspecified; I25.2 Old myocardial infarction; F41.8 Other specified anxiety disorders; G47.00 Insomnia, unspecified; E78.00 Pure hypercholesterolemia, unspecified; F17.210 Nicotine dependence, cigarettes, uncomplicated; K21.9 Gastro-esophageal reflux disease without esophagitis; Z79.82 Long term (current) use of aspirin; Z79.899 Other long term (current) drug therapy; Z79.84 Long term (current) use of oral hypoglycemic drugs; Z95.5 Presence of coronary angioplasty implant and graft
CPT/HCPCS: 36415; 71045; 80048; 80053; 80061; 82962; 83036; 83690; 84484; 85025; 85379; 93005; 96372; 96374; 96375; 96376; 99285; C8929; G0378; J1650; J1885; J2060; J2270; Q9957; 93356; J1815

== ENCOUNTER 2021-03-31 08:35 | Observation (INO) | payer MEDICAID ==
[~2021-03-31] VITALS: Ht 182.9 cm; Wt 129.8 kg
[~2021-03-31 08:35] MED LIST changes: +CLON0.5T PO; +CLOP75TA PO
--- NOTE | 2021-03-31 08:57 | NUR ---
PT STRAIGHT BACK TO ROOM FROM LOBBY. PT WITH SUDDEN ONSET SUBSTERNAL CP RADIATES TO LEFT NECK, SHOULDER AND BACK. 06/25 "FEELS LIKE MY CHEST ISGOING TO BURST" DR TOM AT BEDSIDE, EKG COMPLETED, ALL MONITORS PLACED, VSS.
[2021-03-31] MEDS ORDERED: ASPIRIN 81 MG TABLET CHEW ONE (09:07)
[2021-03-31] MEDS ORDERED: NITROGLYCERIN SINGLE TAB 0.4 MG SL ONE (09:07)
[2021-03-31] MEDS: NITROGLYCERIN SINGLE TAB 0.4 MG SL PRN ×3 (09:09→09:22)
[2021-03-31 09:14] LABS: BASOPHILS % (AUTO) 1 % (0-1); EOSINOPHILS % (AUTO) 1 % (1-7); LYMPHOCYTES % (AUTO) 24 % (22-44); MEAN CORPUSCULAR HEMOGLOBIN 29.8 pg (27.5-34.5); MEAN CORPUSCULAR HGB CONC 34.4 g/dL (33.2-36.2); MONOCYTES % (AUTO) 6 % (2-9); NEUTROPHILS % (AUTO) 68 % (42-75); PLATELET COUNT 179 x10^3/uL (130-400); RED BLOOD COUNT 5.13 x10^6/uL (4.38-5.82); RED CELL DISTRIBUTION WIDTH 13.9 % (9.4-14.8)
--- NOTE | 2021-03-31 09:14 | NUR ---
PT MED NOTED. NTG X 1 WITH NO CHANGE IN PAIN. BP 125/77,
[2021-03-31 09:23] LABS: ALANINE AMINOTRANSFERASE 31 U/L (12-78); ALBUMIN 3.6 g/dL (3.4-5.0); ANION GAP 10 mmol/L (5-15); CALCIUM 8.4 mg/dL (8.5-10.1); CHLORIDE 109 mmol/L (98-107); CREATININE 1.08 mg/dL (0.7-1.3)
--- NOTE | 2021-03-31 09:23 | NUR ---
PAIN CONTINUES 9/10 AFTER 2ND NTG. BP 132/72
[2021-03-31 09:28] LABS: ALKALINE PHOSPHATASE 72 U/L (45-117); BILIRUBIN,TOTAL 0.9 mg/dL (0.2-1.0); TOTAL PROTEIN 7.4 g/dL (6.4-8.2); TROPONIN I < 0.015 ng/mL (0.000-0.045)
--- NOTE | 2021-03-31 09:28 | NUR ---
PAIN CONTINUES 9/10 AFTER 3RD NTG. BP 128/74. DR TOM UPDATED.
[2021-03-31] MEDS ORDERED: SODIUM CHLORIDE FLUSH 10ML SYR IVF ONE (09:30)
[2021-03-31] MEDS ORDERED: ASPIRIN 81 MG TABLET CHEW PO ONE (09:30)
--- NOTE | 2021-03-31 09:40 | NUR ---
DR TOM AT BEDSIDE, POC AND PLAN FOR ADMIT DISCUSSED.
[2021-03-31] MEDS ORDERED: LORazepam 2 MG/ML, 1ML IVPush ONE (10:00)
[2021-03-31] MEDS ORDERED: LORazepam 2 MG/ML, 1ML ONE (10:04)
--- NOTE | 2021-03-31 10:07 | NUR ---
PT CONTINUES WITH CP 06/25 AND HOLDS HIS CLOSED FIST AGAINST HIS CHEST. VSS, AND NO CHANGE IN EKG. NEW ORDER REC'D FOR ATIVAN AND PT MED NOTED.
--- NOTE | 2021-03-31 10:48 | NUR ---
PT APEARS MORE COMFORTABLE, NO LONGER HOLDING CLOSED FIST TO CHEST, AND IS TEXTING ON HIS PHONE. PT VERBALIZES "IT STILL HURTS LIKE HELL" PAIN 06/25, VSS. CHART UP FOR RECHECK
[2021-03-31 12:02] VITALS: BP 133/79
[2021-03-31] MEDS ORDERED: NITROGLYCERIN 0.4 MG BOTTLE (25 TABS) SL PRN (12:30)
[2021-03-31] MEDS ORDERED: ONDANSETRON 2MG/ML, 2ML IVPush PRN (12:30)
[2021-03-31] MEDS: SODIUM CHLORIDE 0.9% 1,000 ML IV SCH (12:30)
[2021-03-31] MEDS ORDERED: ACETAMINOPHEN 325 MG TABLET PO PRN (12:30)
[2021-03-31] MEDS ORDERED: ONDANSETRON ODT 4 MG PO PRN (12:30)
[2021-03-31] MEDS ORDERED: hydrOXyzine 50MG TABLET PO PRN (12:30)
[2021-03-31] MEDS ORDERED: TRAZODONE 50MG TABLET PO PRN (12:30)
[2021-03-31] MEDS ORDERED: MAALOX/HYOSCYAMINE/LIDOCAINE 45 ML BTL PO ONE (12:30)
[2021-03-31] MEDS: HEPARIN 5,000 UNITS/ML, 1ML SQ SCH ×2 (13:15→19:59)
[2021-03-31 13:18] LABS: TROPONIN I < 0.015 ng/mL (0.000-0.045)
[2021-03-31 14:25] VITALS: BP 154/80
[2021-03-31] MEDS ORDERED: OMNIPAQUE 350 MG/ML, 100ML BOTTLE ONE (15:49)
[2021-03-31] MEDS: INSULIN LISPRO 100 UNITS/ML, PEN SQ-INSULIN SCH ×2 (16:00→20:02)
[2021-03-31 16:58] VITALS: BP 149/86
[2021-03-31] MEDS: LACTOBACILLUS CHEW TABLET PO SCH ×2 (17:00→19:58)
[2021-03-31] MEDS: metFORMIN 850 MG TABLET PO SCH (17:00)
[2021-03-31] MEDS: CARVEDILOL 3.125 MG TABLET PO SCH (17:00)
[2021-03-31] MEDS ORDERED: IBUPROFEN 600 MG TABLET PO PRN (18:00)
[2021-03-31] MEDS ORDERED: IBUPROFEN 200 MG TABLET PO PRN (18:30)
[2021-03-31 19:03] LABS: TROPONIN I < 0.015 ng/mL (0.000-0.045)
[2021-03-31 19:11] VITALS: BP 120/74
[2021-03-31] MEDS: BUSPIRONE 5 MG TABLET PO SCH (19:58)
[2021-03-31] MEDS: OMEPRAZOLE 20 MG CAPSULE.DR PO SCH (20:10)
[2021-03-31] MEDS ORDERED: ATORVASTATIN 80 MG TABLET PO SCH (21:00)
[2021-03-31] MEDS ORDERED: MORPHINE SULFATE 4 MG/ML, 1ML IVPush ONE (21:30)
[2021-04-01 01:55] VITALS: BP 131/79
[2021-04-01] MEDS: SODIUM CHLORIDE 0.9% 1,000 ML IV SCH (03:14)
[2021-04-01 05:17] VITALS: BP 146/81
[2021-04-01] MEDS: HEPARIN 5,000 UNITS/ML, 1ML SQ SCH (05:18)
[2021-04-01] MEDS: CARVEDILOL 3.125 MG TABLET PO SCH (05:18)
[2021-04-01 06:23] VITALS: BP 147/90
[2021-04-01] MEDS: INSULIN LISPRO 100 UNITS/ML, PEN SQ-INSULIN SCH ×2 (07:00→11:00)
[2021-04-01 08:08] VITALS: BP 158/83
[2021-04-01] MEDS: LACTOBACILLUS CHEW TABLET PO SCH (08:11)
[2021-04-01] MEDS: OMEPRAZOLE 20 MG CAPSULE.DR PO SCH (08:11)
[2021-04-01] MEDS: metFORMIN 850 MG TABLET PO SCH (08:11)
[2021-04-01] MEDS: BUSPIRONE 5 MG TABLET PO SCH (08:17)
[2021-04-01] MEDS ORDERED: ASPIRIN 81 MG TABLET EC PO SCH (09:00)
[2021-04-01] MEDS ORDERED: SERTRALINE 50MG TABLET PO SCH (09:00)
[2021-04-01] MEDS ORDERED: LISINOPRIL 5 MG TABLET PO SCH (09:00)
[2021-04-01] MEDS ORDERED: EZETIMIBE 10 MG TABLET PO SCH (09:00)
[2021-04-01] MEDS ORDERED: CLOPIDOGREL 75 MG TABLET PO SCH (09:00)
[2021-04-01] MEDS ORDERED: KETOROLAC 30 MG/1 ML IVPush ONE (09:30)
[2021-04-01] MEDS ORDERED: CARV3.1212 PO (10:37)
[2021-04-01] MEDS ORDERED: INSU100I11 SQ-INSULIN (10:37)
[2021-04-01] MEDS ORDERED: METF850T PO (10:37)
[2021-04-01] MEDS ORDERED: ACET325T26 PO (10:37)
[2021-04-01] MEDS ORDERED: ACID1TAB7 PO (10:37)
[2021-04-01] MEDS ORDERED: SODIUM CHLORIDE 0.9% 1,000 ML IV SCH (12:30)
== END 2021-04-01 12:11 | disposition home or self-care (01) ==
LOC: ED 08:37 → EDIP 11:13 → INTOOBSV 11:13 → 5SO 11:54 → DCLOUNGE 04-01 12:05
PROVIDERS: ADMIT Family Medicine; ATTEND Family Medicine
DX: R07.89 Other chest pain (principal); I10 Essential (primary) hypertension; E11.9 Type 2 diabetes mellitus without complications; E66.9 Obesity, unspecified; G47.30 Sleep apnea, unspecified; I25.10 Atherosclerotic heart disease of native coronary artery without angina pectoris; M19.90 Unspecified osteoarthritis, unspecified site; E78.5 Hyperlipidemia, unspecified; F17.210 Nicotine dependence, cigarettes, uncomplicated; I25.2 Old myocardial infarction; K21.9 Gastro-esophageal reflux disease without esophagitis; E78.00 Pure hypercholesterolemia, unspecified; F41.8 Other specified anxiety disorders; Z79.899 Other long term (current) drug therapy; Z95.5 Presence of coronary angioplasty implant and graft; Z79.82 Long term (current) use of aspirin
CPT/HCPCS: 36415; 71045; 71275; 80053; 82330; 82962; 83036; 84484; 85025; 93005; 96361; 96372; 96374; 96375; 99285; G0378; J1644; J1885; J2060; J2270; J7030; Q9967